=== PATIENT | male | born 1990 | race Two or more races ===

== ENCOUNTER 2018-12-10 03:17 | Emergency (ER) | payer BC, OTHER ==
[~2018-12-10] VITALS: Ht 180.3 cm; Wt 94.3 kg
--- NOTE | 2018-12-10 03:23 | NUR ---
BIBRA. C/O "HAVING PALPITATIONS. -CP, -SOB, -HEADACHE, -DIZZINESS, +NAUSEA" -ACUTE DISTRESS AT THIS TIME. PT AOX4. AMBLATORY. ON MONITOR.
--- NOTE | 2018-12-10 03:53 | NUR ---
IV INITIATED RAC 18G. LABS DRAWN FROM SITE. 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 IV INTACT AND PATENT, PLACED ON SALINE LOCK
[2018-12-10] MEDS ORDERED: HALOPERIDOL LACTATE INJ 5 MG/ML VIAL ONE (03:56)
[2018-12-10] MEDS ORDERED: ASPIRIN 81 MG TAB.CHEW ONE (03:57)
[2018-12-10] MEDS ORDERED: NITROGLYCERIN PACKET 1 GM PACKET ONE (03:57)
[2018-12-10] MEDS ORDERED: LORAZEPAM INJ 2 MG/ML VIAL ONE (03:58)
[2018-12-10] MEDS ORDERED: IV NS 0.9% 1,000 ML BAG IV ONE (04:00)
[2018-12-10] MEDS ORDERED: NITROGLYCERIN PACKET 1 GM PACKET TD ONE (04:00)
[2018-12-10] MEDS ORDERED: LORAZEPAM INJ 2 MG/ML VIAL IV ONE (04:00)
[2018-12-10] MEDS ORDERED: ASPIRIN 81 MG TAB.CHEW PO ONE (04:00)
[2018-12-10] MEDS ORDERED: HALOPERIDOL LACTATE INJ 5 MG/ML VIAL IV ONE (04:00)
[2018-12-10 04:13] LABS: CARBON DIOXIDE 30 mmol/L (21-32); CHLORIDE 105 mmol/L (98-107); CREATININE 0.9 mg/dL (0.6-1.3); GLUCOSE 118 mg/dL (74-106); POTASSIUM 3.5 mmol/L (3.5-5.1); SODIUM SERUM 142 mmol/L (136-145); UREA NITROGEN, BLOOD 12 mg/dL (7-18)
[2018-12-10 04:24] LABS: ALANINE AMINOTRANSFERASE 23 U/L (12-78); ALKALINE PHOSPHATASE 32 U/L (46-116); ASPARTATE AMINOTRANSFERASE 11 U/L (15-37); B-TYPE NATRIURETIC PEPTIDE 76 PG/ML (0-125); BILIRUBIN,DIRECT 0.1 mg/dL (0.0-0.2); BILIRUBIN,TOTAL 0.4 mg/dL (0.2-1.0); TOTAL PROTEIN, SERUM 6.7 g/dL (6.4-8.2)
[2018-12-10 04:25] LABS: BASOPHILS % (AUTO) 0.1 % (0.0-2.0); EOSINOPHILS % (AUTO) 0.3 % (0.0-6.0); HEMATOCRIT 41 % (39-51); HEMOGLOBIN 13.5 g/dL (13.5-17.5); LYMPHOCYTES # (AUTO) 1.3 /CMM (0.8-4.8); LYMPHOCYTES % (AUTO) 19.9 % (20.0-44.0); MEAN CORPUSCULAR HGB CONC 33 g/dl (31.0-36.0); MEAN CORPUSCULAR VOLUME 86 fL (80-96); MONOCYTES # (AUTO) 0.5 /CMM (0.1-1.30); MONOCYTES % (AUTO) 7.4 % (2.0-12.0); NEUTROPHILS # (AUTO) 4.9 /CMM (1.8-8.9); NEUTROPHILS % (AUTO) 72.3 % (43.0-81.0); PLATELET COUNT (AUTO) 208 /CMM (150-450); RED BLOOD CELL COUNT(AUTO) 4.73 MIL/uL (4.5-6.0); WHITE BLOOD COUNT (AUTO) 6.7 K/uL (4.3-11.0)
[2018-12-10] MEDS ORDERED: diphenhydrAMINE HCL 50 MG/ML VIAL IV ONE (05:00)
[2018-12-10] MEDS ORDERED: diphenhydrAMINE HCL 50 MG/ML VIAL ONE (05:13)
[2018-12-10 05:39] LABS: D-DIMER 0.19 mg/L(FEU (0.17-0.50)
--- NOTE | 2018-12-10 06:04 | NUR ---
Patient is resting comfortably in bed with eyes closed. Easily aroused. VSS. GIVEN BENADRYL IV
[2018-12-10 08:34] VITALS: BP 125/71
--- NOTE | 2018-12-10 08:37 | NUR ---
Patient discharged to home in stable condition. Written and verbal after care instructions given. Patient verbalizes understanding of instruction.IV removed. Catheter intact and site benign. Pressure and 4x4 applied to site. No bleeding noted.
== END 2018-12-10 08:36 | disposition home or self-care (01) ==
LOC: ER 03:19
DX: R07.89 Other chest pain (principal); R00.2 Palpitations; F12.929 Cannabis use, unspecified with intoxication, unspecified
CPT/HCPCS: 36415; 71045; 80048; 80076; 83880; 84484 ×2; 85025; 85378; 85730; 93005; 96374; 96375; 99284; J1200; J1630; J2060; J7030